=== PATIENT | male | born 1945 | race American Indian/Alaskan Native ===

== ENCOUNTER 2018-06-30 10:11 | Inpatient (IN) | payer MEDICARE, OTHER | END 2018-07-09 16:15 | disposition home or self-care (01) | LOC: ER 10:11 → ED HOLD 13:27 → PCU 3S 15:22 | DX: A41.9 Sepsis, unspecified organism (principal); N17.0 Acute kidney failure with tubular necrosis; L03.116 Cellulitis of left lower limb; E87.1 Hypo-osmolality and hyponatremia; N17.9 Acute kidney failure, unspecified; E86.0 Dehydration ==

== ENCOUNTER 2019-02-26 12:51 | Outpatient (CLI) | payer MEDICARE, MEDICAID ==
[~2019-02-26 12:51] MED LIST: AMLO2.5T2 PO; BUPR150T8 PO; CHLO25TA22 PO; CLE150C PO; PANT40TA4 PO
== END 2019-02-26 23:59 | disposition home or self-care (01) ==
LOC: RAD 12:51
PROVIDERS: ATTEND Radiology Radiation Oncology
DX: C15.9 Malignant neoplasm of esophagus, unspecified (principal); R13.12 Dysphagia, oropharyngeal phase; I11.0 Hypertensive heart disease with heart failure; I50.9 Heart failure, unspecified; M19.90 Unspecified osteoarthritis, unspecified site; J44.9 Chronic obstructive pulmonary disease, unspecified; Z79.82 Long term (current) use of aspirin; Z79.899 Other long term (current) drug therapy; Z87.891 Personal history of nicotine dependence; Z85.21 Personal history of malignant neoplasm of larynx
CPT/HCPCS: 74230

== ENCOUNTER 2020-03-17 13:45 | Outpatient (CLI) | payer MEDICARE, MEDICAID ==
[~2020-03-17 13:45] MED LIST changes: -PANT40TA4 PO; +PANT40TA54 PO
== END 2020-03-17 23:59 | disposition home or self-care (01) ==
LOC: RAD 13:45
PROVIDERS: ATTEND Radiology Radiation Oncology
DX: C32.0 Malignant neoplasm of glottis (principal); R13.12 Dysphagia, oropharyngeal phase; R49.0 Dysphonia; Z85.89 Personal history of malignant neoplasm of other organs and systems
CPT/HCPCS: 74230